=== PATIENT | female | born 1950 | race Caucasian/White ===

== ENCOUNTER 2016-10-19 11:27 | Day surgery (SDC) | payer OTHER ==
[~2016-10-19] VITALS: Ht 154.9 cm; Wt 59.0 kg
[~2016-10-19 11:27] MED LIST: AMBIEN10 MG PO; ASCORBIC ACID500 M3 PO; AUGMENTIN875 MG PO; CALTRATE 600 +1 EAC1 PO; COLACE100 MG PO; CYANOCOBALAM1000 MCG PO; DOCUSATE SODIU100 MG PO; ECOTRIN325 MG PO; FOLIC ACID1 MG PO; Flagyl PO; Glucophage PO; IRON 100-VITAM1 EACH PO; LIDOCAINE700 MG TD; LISINOPRIL2.5 MG PO; Lipitor PO; MAGNESIUM250 MG PO; MAGNESIUM400 M1 PO; METFORMIN HCL1000 MG PO; Mylicon,Mylanta Gas, PO; NEXIUM40 MG PO; NORVASC10 MG PO; Norvasc PO; OSTEO BI-FLEX1 EAC1 PO; OXYCODONE HCL5 MG PO; PERCOCET 5/31 TABLET PO; PRAVASTATIN SOD40 MG PO; SENNA PLUS TAB1 EACH PO; SERTRALINE HCL50 MG PO; THERAGRAN1 TABLET PO; VISTARIL25 MG PO; ZOLOFT50 MG PO; Zestril,Prinivil PO; lipitor; metformin; norvasc
[2016-10-19 12:05] VITALS: BP 154/75
[2016-10-19 12:10] LABS: POINT-OF-CARE METER ID UU14174212
[2016-10-19 16:25] LABS: POINT-OF-CARE METER ID UU13113675
[2016-10-19 18:10] VITALS: BP 113/57
[2016-10-19 19:10] VITALS: BP 139/61
== END 2016-10-19 19:20 | disposition home or self-care (01) ==
LOC: SDC 11:27
PROVIDERS: Orthopaedic Surgery
PROC: 0QP604Z Removal of Internal Fixation Device from Right Upper Femur, Open Approach (ICD-10-PCS; principal; 2016-10-19)
DX: T85.848A Pain due to other internal prosthetic devices, implants and grafts, initial encounter (principal); Y83.1 Surgical operation with implant of artificial internal device as the cause of abnormal reaction of the patient, or of later complication, without mention of misadventure at the time of the procedure; M25.551 Pain in right hip; I10 Essential (primary) hypertension; F41.9 Anxiety disorder, unspecified; E11.9 Type 2 diabetes mellitus without complications; E78.5 Hyperlipidemia, unspecified; K21.9 Gastro-esophageal reflux disease without esophagitis
CPT/HCPCS: 73501; 76000; 82948; J1100; J1170; J2250; J2405; J3010

== ENCOUNTER → 2016-12-14 | Outpatient (CLI) | payer OTHER | END | disposition home or self-care (01) | LOC: MRI 12:43 → RAD 13:30 → MRI 13:30 | DX: M87.851 Other osteonecrosis, right femur (principal); M21.951 Unspecified acquired deformity of right thigh; M25.851 Other specified joint disorders, right hip; S73.191A Other sprain of right hip, initial encounter; R60.9 Edema, unspecified | CPT/HCPCS: 73721 ==

== ENCOUNTER 2017-02-21 22:09 | Inpatient (IN) | payer OTHER ==
[~2017-02-21] VITALS: Ht 154.9 cm; Wt 58.0 kg
[~2017-02-21 22:09] MED LIST changes: +IRON160 M1 PO
[2017-02-22] VITALS (7 sets, daily range): BP systolic 97–142; BP diastolic 52–71
[2017-02-22 06:12] LABS: PROTHROMBIN TIME 10.8 SEC (10.2-12.9)
[2017-02-22 06:15] LABS: PTT 31.7 SEC (25-37)
[2017-02-22 07:06] LABS: POINT-OF-CARE METER ID UU14174212; POINT-OF-CARE USER ID AHSRSCSLC11
[2017-02-22 09:26] LABS: POINT-OF-CARE METER ID UU13113675
[2017-02-22 09:46] LABS: HEMATOCRIT 33.2 % (36.0-46.0); MCV 88.5 FL (83-99)
[2017-02-22 11:43] LABS: POINT-OF-CARE METER ID UU13113712
[2017-02-22 16:19] LABS: POINT-OF-CARE METER ID UU13113712
[2017-02-22 21:47] LABS: POINT-OF-CARE METER ID UU13113712
[2017-02-23 04:24] VITALS: BP 133/73
[2017-02-23 05:15] LABS: HEMATOCRIT 30.2 % (36.0-46.0)
[2017-02-23 05:41] LABS: ANION GAP 8 MEQ/L (2-14); CHLORIDE 100 MEQ/L (99-109); GFR ESTIMATE (CALCULATED) > 59 mL/min/; GLUCOSE 156 mg/dL (70-99); SAMPLE HEMOLYSIS CHECK 0; SAMPLE ICTERIC CHECK 0; SAMPLE LIPEMIA CHECK 0; SODIUM 134 MEQ/L (136-147); UREA NITROGEN (BUN) 7 mg/dL (9-23)
[2017-02-23 08:00] VITALS: BP 96/58
[2017-02-23 08:03] LABS: POINT-OF-CARE METER ID UU13113712
[2017-02-23 12:12] LABS: POINT-OF-CARE METER ID UU13113712
[2017-02-23 12:15] VITALS: BP 101/51
[2017-02-23 15:59] VITALS: BP 120/58
[2017-02-23 16:26] LABS: POINT-OF-CARE METER ID UU13113712
[2017-02-23 20:13] VITALS: BP 135/62
[2017-02-23 21:52] LABS: POINT-OF-CARE METER ID UU13113712
[2017-02-24] VITALS: BP 124/59
[2017-02-24 04:30] VITALS: BP 114/54
[2017-02-24 07:20] LABS: POINT-OF-CARE METER ID UU13113712
[2017-02-24 08:00] VITALS: BP 122/57
[2017-02-24 09:16] LABS: HEMATOCRIT 32.9 % (36.0-46.0)
[2017-02-24] MEDS ORDERED: ELIQUIS2.5 MG PO (09:24)
[2017-02-24] MEDS ORDERED: DOCUSATE SODIU100 MG PO (09:24)
[2017-02-24] MEDS ORDERED: OXYCODONE HCL5 MG PO (09:24)
[2017-02-24 11:43] LABS: POINT-OF-CARE METER ID UU13113712
[2017-02-24 12:00] VITALS: BP 138/61
== END 2017-02-24 15:50 | disposition home health service (06) | DRG 470 ==
LOC: ENRESERV 22:09 → 2SOUTH 02-22 05:26 → 3WEST 02-22 05:26 → 2SOUTH 02-22 13:30 → 3WEST 02-24 15:50
PROVIDERS: Orthopaedic Surgery; Physician Assistant
PROC: 0SR904A Replacement of Right Hip Joint with Ceramic on Polyethylene Synthetic Substitute, Uncemented, Open Approach (ICD-10-PCS; principal; 2017-02-22)
DX: M87.251 Osteonecrosis due to previous trauma, right femur (principal); S72.001S Fracture of unspecified part of neck of right femur, sequela; D64.9 Anemia, unspecified; I10 Essential (primary) hypertension; E11.9 Type 2 diabetes mellitus without complications; K21.9 Gastro-esophageal reflux disease without esophagitis; Z88.5 Allergy status to narcotic agent
CPT/HCPCS: 80048; 82948; 85014; 85018; 85610; 85730; 97530 GO; J0131; J0690; J1815; J1885; J2250; J2405; J7050; J7120; S0020

== ENCOUNTER 2017-07-09 09:11 | Day surgery (SDC) | payer OTHER ==
[~2017-07-09 09:11] MED LIST changes: +ELIQUIS2.5 MG PO; +IRON325 M1 PO
== END 2017-07-09 16:30 | disposition home or self-care (01) ==
LOC: CATH 09:11
PROVIDERS: Internal Medicine Cardiovascular Disease
DX: I25.10 Atherosclerotic heart disease of native coronary artery without angina pectoris (principal); I10 Essential (primary) hypertension; E78.5 Hyperlipidemia, unspecified; E11.9 Type 2 diabetes mellitus without complications; Z82.49 Family history of ischemic heart disease and other diseases of the circulatory system; Z96.641 Presence of right artificial hip joint; Z90.49 Acquired absence of other specified parts of digestive tract; K21.9 Gastro-esophageal reflux disease without esophagitis; Z79.84 Long term (current) use of oral hypoglycemic drugs; Z88.5 Allergy status to narcotic agent
CPT/HCPCS: 82948; 85347; C1769; C1887; J0153; J1644; J2250; J3010

== ENCOUNTER 2017-10-22 22:57 | Emergency (ER) | payer OTHER ==
[~2017-10-22] VITALS: Ht 157.5 cm; Wt 62.9 kg
[2017-10-22 23:15] LABS: HEMATOCRIT 35.1 % (36.0-46.0); HEMOGLOBIN 11.6 G/DL (11.9-15.5); MCH 28.6 PG (29.0-34.0); MCV 86.7 FL (83-99); PLATELET COUNT 226 K/uL (156-360); RBC DIS.WIDTH-CV 13.3 % (11.8-14.6); RBC DIS.WIDTH-SD 41.9 % (39-53); RED BLOOD COUNT 4.05 M/uL (3.80-5.20); WHITE BLOOD COUNT 10.1 K/uL (4.1-10.2)
[2017-10-22 23:25] LABS: APPEARANCE CLEAR ((CLEAR)); BILIRUBIN NEGATIVE; BLOOD NEGATIVE; COLOR STRAW ((YELLOW)); GLUCOSE (STRIP) NEGATIVE; KETONES NEGATIVE; LEUKOCYTES TRACE; NITRITE NEGATIVE; PROTEIN (STRIP) NEGATIVE; SPECIFIC GRAVITY 1.009 (1.000-1.030); UROBILINOGEN 0.2 MG/DL (0.2-1.0)
[2017-10-22 23:26] LABS: CHLORIDE 102 mEq/L (99-109); POTASSIUM 4.3 mEq/L (3.7-5.4); SODIUM 136 mEq/L (136-147)
[2017-10-22 23:27] LABS: GLUCOSE 162 mg/dL (70-99)
[2017-10-22 23:29] LABS: BACTERIA RARE /HPF; EPITHELIAL CELLS RARE /HPF; MUCUS TRACE /LPF; RED BLOOD CELLS 0-5 /HPF (0-5); UCUL ADDED? NO; WHITE BLOOD CELLS 0-5 /HPF (0-5)
[2017-10-22 23:31] LABS: CREATININE 0.7 mg/dL (0.6-1.3); GFR ESTIMATE (CALCULATED) > 59 mL/min/
[2017-10-22 23:32] LABS: UREA NITROGEN (BUN) 10 mg/dL (9-23)
[2017-10-23] MEDS ORDERED: ZOFRAN4 MG PO (03:00)
[2017-10-23] MEDS ORDERED: FLAGYL500 MG PO (03:00)
[2017-10-23] MEDS ORDERED: ULTRAM50 MG PO (03:00)
[2017-10-23] MEDS ORDERED: LEVAQUIN750 MG PO (03:00)
[2017-10-23 03:20] VITALS: BP 135/59
== END 2017-10-23 03:21 | disposition home or self-care (01) ==
LOC: EME 22:57
DX: K57.92 Diverticulitis of intestine, part unspecified, without perforation or abscess without bleeding (principal); E11.9 Type 2 diabetes mellitus without complications; E78.5 Hyperlipidemia, unspecified; K21.9 Gastro-esophageal reflux disease without esophagitis; Z90.49 Acquired absence of other specified parts of digestive tract; Z96.641 Presence of right artificial hip joint; Z79.84 Long term (current) use of oral hypoglycemic drugs; Z88.5 Allergy status to narcotic agent
CPT/HCPCS: 74177; 80048; 81003; 85027; 99281; 99285; J7030